=== PATIENT | female | born 1985 | race Caucasian/White ===

== ENCOUNTER 2018-01-14 15:41 | Outpatient (CLI) | payer MEDICAID ==
[2018-01-14] MEDS ORDERED: RINGERS SOLUTION,LACTATED 1,000 ML IV PRN (16:44)
[2018-01-14] MEDS ORDERED: RINGERS SOLUTION,LACTATED 1,000 ML IV ONE (16:44)
[2018-01-14 17:09] LABS: APPEARANCE,URINE CLEAR; BILIRUBIN,URINE NEGATIVE (NEGATIVE); COLOR,URINE YELLOW; GLUCOSE, URINE 50 mg/dL (NEGATIVE); KETONES,URINE NEGATIVE (NEGATIVE); LEUKOCYTE ESTERASE,URINE TRACE (NEGATIVE); NITRITE,URINE NEGATIVE (NEGATIVE); PROTEIN,URINE NEGATIVE (NEGATIVE); URINE SPECIFIC GRAVITY 1.012
[2018-01-14 17:30] LABS: URINE BARBITURATES SCREEN NEGATIVE; URINE BENZODIAZEPINES SCREEN NEGATIVE; URINE COCAINE SCREEN NEGATIVE; URINE MARIJUANA (THC) SCREEN NEGATIVE; URINE METHADONE SCREEN NEGATIVE; URINE PHENCYCLIDINE SCREEN NEGATIVE
[2018-01-14 17:42] LABS: URINE AMPHETAMINES SCREEN UNCONFIRMED POSITIVE
== END 2018-01-14 18:46 | disposition home or self-care (01) ==
LOC: LC 15:41
PROVIDERS: ATTEND Student in an Organized Health Care Education/Training Program
PROC: 4A1HXCZ Monitoring of Products of Conception, Cardiac Rate, External Approach (ICD-10-PCS; principal; 2018-01-14)
DX: O47.03 False labor before 37 completed weeks of gestation, third trimester (principal); Z3A.35 35 weeks gestation of pregnancy
CPT/HCPCS: 59025; 81001; 80307 ×2; G0480; 36415

== ENCOUNTER 2018-02-12 05:00 | Inpatient (IN) | payer MEDICAID ==
[2018-02-11 12:37] LABS: ABSOLUTE LYMPHOCYTES (AUTO) 1.1 10^3/uL (0.5-4.7); ABSOLUTE MONOCYTES (AUTO) 0.4 10^3/uL (0.1-1.4); ABSOLUTE NEUT (AUTO) 6.3 10^3/uL (1.7-8.2); BASOPHILS % (AUTO) 0.3 % (0-2); EOSINOPHILS % (AUTO) 0.6 % (0-6); HEMATOCRIT 25.7 % (36.0-47.0); HEMOGLOBIN 8.1 g/dL (12.0-15.5); LYMPHOCYTES % (AUTO) 13.9 % (13-45); MEAN CORPUSCULAR HEMOGLOBIN 18.4 pg (27.0-33.4); MEAN CORPUSCULAR HGB CONC 31.4 g/dL (32.0-36.0); MONOCYTES % (AUTO) 4.6 % (3-13); PLATELET COUNT 234 10^3/uL (150-450); RED CELL DISTRIBUTION WIDTH 17.4 % (11.5-14.0); SEGMENTED NEUTROPHILS % (AUTO) 80.6 % (42-78); TOTAL CELLS COUNTED % (AUTO) 100 %; WHITE BLOOD COUNT 7.9 10^3/uL (4.0-10.5)
[2018-02-11 12:38] LABS: MEAN CORPUSCULAR VOLUME 59 fl (80-97)
[2018-02-11 12:41] LABS: APPEARANCE,URINE SLIGHTLY-CLOUDY; BILIRUBIN,URINE NEGATIVE (NEGATIVE); COLOR,URINE DARK YELLOW; GLUCOSE, URINE NEGATIVE (NEGATIVE); KETONES,URINE NEGATIVE (NEGATIVE); LEUKOCYTE ESTERASE,URINE SMALL (NEGATIVE); NITRITE,URINE NEGATIVE (NEGATIVE); PROTEIN,URINE 30 mg/dL (NEGATIVE); URINE SPECIFIC GRAVITY 1.021
[2018-02-11 12:54] LABS: URINE AMPHETAMINES SCREEN NEGATIVE; URINE BARBITURATES SCREEN NEGATIVE; URINE BENZODIAZEPINES SCREEN NEGATIVE; URINE COCAINE SCREEN NEGATIVE; URINE MARIJUANA (THC) SCREEN NEGATIVE; URINE METHADONE SCREEN NEGATIVE; URINE PHENCYCLIDINE SCREEN NEGATIVE
[2018-02-11 13:10] LABS: ANISOCYTOSIS 1+; HYPOCHROMASIA 2+; OVALOCYTES 1+; PLATELET COMMENT ADEQUATE; POIKILOCYTOSIS 1+; POLYCHROMASIA 1+; SCHISTOCYTES SLIGHT; TEAR DROP CELLS 1+
[~2018-02-12 05:00] MED LIST: CEFAZOLIN 2 GM/D5W RTU 2 GM/50 ML RTUPB IV PRN; CEFAZOLIN SODIUM 2 GM in DEXTROSE 5%-WATER 100 ML IV PRN; LACTATED RINGERS 1000 ML IV PRN; LIDOCAINE 0.5% INJ-PF (5 MG/ML) 50 ML SDV SUBCUT PRN
[2018-02-12] MEDS ORDERED: MEPERIDINE HCL/PF INJ 25 MG/1 ML DISP.SYRIN IV PRN (07:44)
[2018-02-12] MEDS ORDERED: PROMETHAZINE HCL INJ 25 MG/1 ML VIAL IV PRN ×3 (07:44→08:29)
[2018-02-12] MEDS ORDERED: DIPHENHYDRAMINE HCL 50 MG/ML VIAL IV PRN (07:44)
[2018-02-12] MEDS ORDERED: MORPHINE SULFATE 10 MG/ML INJ IV PRN (07:44)
[2018-02-12] MEDS ORDERED: FENTANYL CITRATE INJ/PF 100 MCG/2 ML AMPUL IV PRN ×3 (07:44)
[2018-02-12] MEDS ORDERED: OXYCODONE-ACETAMINOPHEN 5-325 MG TABLET PO PRN ×3 (07:44→08:29)
[2018-02-12] MEDS ORDERED: DEXAMETHASONE SOD PHOSPHATE INJ 4 MG/1 ML VIAL ONE (07:45)
[2018-02-12] MEDS ORDERED: GLYCOPYRROLATE INJ 0.4 MG/2 ML VIAL ONE (07:45)
[2018-02-12] MEDS ORDERED: PHENYLEPHRINE HCL INJ/PF 10 MG/1 ML SDV ONE (07:45)
[2018-02-12] MEDS ORDERED: MORPHINE SULFATE 10 MG/ML INJ ONE ×2 (08:09→09:46)
[2018-02-12] MEDS ORDERED: MIDAZOLAM 2 MG/2 ML INJ ONE ×2 (08:09→09:10)
[2018-02-12] MEDS ORDERED: FENTANYL CITRATE INJ/PF 100 MCG/2 ML AMPUL ONE ×2 (08:09→10:23)
[2018-02-12] MEDS ORDERED: OXYTOCIN 10 UNIT/ML VIAL ONE (08:09)
[2018-02-12] MEDS ORDERED: OXYTOCIN/NORMAL SALINE 20 UNIT/1,000 ML RTUINJ ONE ×2 (08:09→09:53)
[2018-02-12] MEDS ORDERED: TETRACAINE HCL/PF 20MG/2ML AMPULE (SPINAL) ONE (08:10)
[2018-02-12] MEDS ORDERED: ONDANSETRON HCL INJ/PF 4 MG/2 ML SDV ONE (08:10)
[2018-02-12] MEDS ORDERED: RINGERS SOLUTION,LACTATED 1,000 ML IV PRN (08:29)
[2018-02-12] MEDS ORDERED: ACETAMINOPHEN 100 ML IV PRN (08:29)
[2018-02-12] MEDS ORDERED: DIPH/PERTUSS(ACELL)/TETANUS VAC/PF 0.5 ML SYR (>=10YO) IM PRN (08:29)
[2018-02-12] MEDS ORDERED: ACETAMINOPHEN 325 MG TABLET PO PRN (08:29)
[2018-02-12] MEDS ORDERED: MEASLES,MUMPS&RUBELLA VACC/PF 0.5 ML VIAL SUBCUT PRN (08:29)
[2018-02-12] MEDS ORDERED: OXYTOCIN/NORMAL SALINE 20 UNIT/1,000 ML RTUINJ IV PRN (08:29)
--- NOTE | 2018-02-12 09:42 | PDOC DELIVERY SUMMARY ---
Delivery Summary - Maternal Hx : VII Hx # Term Pregnancies: 2 Hx # Pregnancies: 1 FLORENTIN: 02/17/18 Gestational Age: 39+2 Ruptured Membranes: AROM Time of Rupture: 08:53 Fluids: Clear - Delivery Presentation: Breech Heart Rate Monitoring: Done Pre-Operatively Support Person Present: Yes Location: OR : Scheduled, Repeat Placenta: Within Normal Limits Placenta Description: 3 CORD VESSELS PER [address] [employer] Delivery of Placenta Date: 02/12/18 Delivery of Placenta Time: 08:55 - Medications Type of Anesthesia:: Spinal - Infant Assess and Care Baby 1 Female Delivery of Infant Date: 02/12/18 Delivery of Infant Time: 08:54 at 1 minute: 9 at 5 minutes: 9 Preprinted Number On Band: [id number] Skin to Skin: No - MOTHER NAUSEATED To Nursery At: 09:10 Mode of Transport: Bassinet Delivery Weight: 3,425 Delivery Length: 20 in - Delivery Personnel [facility] Worker: EVY BANKS RN: PHANI CHAVARRIA MD: EVA LOPEZ
--- NOTE | 2018-02-12 09:46 | Operative Report ---
Operative Report DATE OF SURGERY: 02/12/18 PREOPERATIVE DIAGNOSIS: Patient desires a repeat and tubal ligation POSTOPERATIVE DIAGNOSIS: Same OPERATION: Repeat via low transverse incision and tubal ligation with Filshie clips SURGEON: EVA LOPEZ ANESTHESIA: Spinal TISSUE REMOVED OR ALTERED: Placenta fallopian tubes COMPLICATIONS: None ESTIMATED BLOOD LOSS: 500 INTRAOPERATIVE FINDINGS: Viable infant normal uterus tubes and ovaries PROCEDURE: Patient was taken to the OR and placed in supine position after her spinal anesthesia. She is prepared and draped in sterile fashion. Castle was placed for drainage of the bladder. The patient's old scar was excised. Low transverse incision was made and carried down the level of the fascia. The fascial incision was made with knife and extended bilaterally with curved Dorsey scissors. The fascia was off the rectus muscles using sharp and blunt dissection. The rectus muscles are in the midline. The peritoneum was entered without incident. Bladder blade was placed in uterine segment was identified. A low transverse incision was made creating a bladder flap. Bladder blade was placed low transverse uterine incision was made with the csafe knife and extended with fingertips. The baby was delivered with some fundal pressure in a jermaine breech fashion.. Mouth and nose were suctioned free. The cord is doubly clamped and cut. Baby is passed off to the steel roller in attendance. The placenta was manually extracted with trailing membranes. The uterus was externalized wrapped in a moist lap sponge. Uterine contents wiped free. Uterus was closed with a running locking layer of 0 chromic suture using the second layer to imbricate the first completing a double layer closure of the uterus. The serosa was closed with a running 2-0 chromic stitch. The pelvis was irrigated and suctioned free of fluid the uterus was replaced in the abdomen. The tubal ligation was carried out by placing a Filshie clip across the mid isthmic portion of each tube after identifying the fimbria on each tube. The abdominal wall peritoneum was closed with running 2-0 chromic stitch. Fascia was closed with a running 0 Vicryl in 2 segments. Yong's layer was brought together with 0 plain gut stitch and the skin was closed with running subcuticular 4-0 undyed Vicryl stitch. The wound was dressed mother and baby did well.
[2018-02-12] MEDS ORDERED: BUPRENORPHINE HCL PO SCH (10:00)
[2018-02-12] MEDS ORDERED: KETOROLAC TROMETHAMINE INJ/PF 30 MG/1 ML SDV ONE (10:59)
[2018-02-12] MEDS ORDERED: ACETAMINOPHEN 100 ML IV ONE (11:02)
[2018-02-12 11:20] LABS: PATH REVIEW PATHOLOGIST REVIEWED
[2018-02-12] MEDS: HYDROMORPHONE HCL INJ/PF 2 MG/ML AMPULE IV PRN ×3 (13:25→23:44)
[2018-02-12] MEDS: PRENATAL VITAMIN W DHA CAPSULE PO SCH (13:36)
[2018-02-12] MEDS: DOCUSATE SODIUM 100 MG CAPSULE PO SCH ×2 (13:36→18:47)
[2018-02-12] MEDS ORDERED: KETOROLAC TROMETHAMINE INJ/PF 30 MG/1 ML SDV IV ONE (14:30)
[2018-02-12] MEDS ORDERED: KETOROLAC TROMETHAMINE INJ/PF 30 MG/1 ML SDV IV SCH (18:00)
[2018-02-12] MEDS: OXYCODONE-ACETAMINOPHEN 5-325 MG TABLET PO PRN (20:42)
[2018-02-12] MEDS: KETOROLAC TROMETHAMINE INJ/PF 30 MG/1 ML SDV IV SCH (21:30)
[2018-02-13] MEDS: HYDROMORPHONE HCL INJ/PF 2 MG/ML AMPULE IV PRN (04:11)
[2018-02-13] MEDS: KETOROLAC TROMETHAMINE INJ/PF 30 MG/1 ML SDV IV SCH (05:46)
[2018-02-13 06:33] LABS: MEAN CORPUSCULAR HEMOGLOBIN 18.4 pg (27.0-33.4); MEAN CORPUSCULAR HGB CONC 30.9 g/dL (32.0-36.0); MEAN CORPUSCULAR VOLUME 59 fl (80-97); PLATELET COUNT 176 10^3/uL (150-450); RED BLOOD COUNT 3.53 10^6/uL (3.72-5.28); RED CELL DISTRIBUTION WIDTH 16.8 % (11.5-14.0); WHITE BLOOD COUNT 11.5 10^3/uL (4.0-10.5)
[2018-02-13 06:50] LABS: HEMOGLOBIN 6.5 g/dL (12.0-15.5)
[2018-02-13] MEDS: IRON POLYSACCHARIDES COMPLEX 150 MG CAPSULE PO SCH (10:08)
[2018-02-13] MEDS: ASCORBIC ACID 500 MG TABLET PO SCH (10:08)
[2018-02-13] MEDS: DOCUSATE SODIUM 100 MG CAPSULE PO SCH ×2 (10:09→22:00)
[2018-02-13] MEDS: PRENATAL VITAMIN W DHA CAPSULE PO SCH (10:09)
[2018-02-13] MEDS: OXYCODONE-ACETAMINOPHEN 5-325 MG TABLET PO PRN ×3 (10:10→19:55)
[2018-02-13] MEDS: IBUPROFEN 800 MG TABLET PO SCH (11:00)
[2018-02-13] MEDS: SIMETHICONE 80 MG TAB.CHEW PO PRN (11:00)
--- NOTE | 2018-02-13 17:03 | PDOC PROGRESS REPORT ---
Subjective-OB Progress Note for:: 02/13/18 Subjective: reports bleeding slowing, pain controlled with current meds, has not passed gas. RN notified and asked to give simethicone. Physical Exam (OB) Vital Signs: Temp Pulse Resp BP Pulse Ox 98.2 F 74 18 134/82 H 100 02/13/18 15:36 02/13/18 15:36 02/13/18 15:36 02/13/18 15:36 02/13/18 15:36 Intake & Output 02/12/18 02/13/18 02/14/18 06:59 06:59 06:59 Intake Total 2850 700 Output Total 900 Balance 1950 700 Weight 77.11 kg - Dressing Removed: No - opsite dressing D&I, small old drainage circled, no redness or swelling Incision: Dressing - dry and intact, Well Approximated - Abdomen Description: Tender, Soft Hernia Present: No Fundal Description: Firm, Midline Fundal Height: u/u - u/2 - Extremities Lower extremities: Arleth's sign - neg Calf: Normal, Nontender Objective-Diagnostic Laboratory: 02/13/18 06:14 02/13/18 06:14 WBC 11.5 H RBC 3.53 L Hgb 6.5 L Hct 21.0 L MCV 59 L MCH 18.4 L MCHC 30.9 L RDW 16.8 H Plt Count 176 Assessment and Plan(PN) - Assessment and Plan (1) Previous section Is this a current diagnosis for this admission?: Yes Plan:: encouraged to walk today - Time Spent with Patient Time with patient: Less than 15 minutes - Disposition Anticipated Discharge: Home Within: within 24 hours
[2018-02-14] MEDS: OXYCODONE-ACETAMINOPHEN 5-325 MG TABLET PO PRN ×2 (00:36→05:51)
[2018-02-14] MEDS: IBUPROFEN 800 MG TABLET PO SCH ×3 (00:40→12:29)
[2018-02-14] MEDS: SIMETHICONE 80 MG TAB.CHEW PO PRN (00:44)
[2018-02-14] MEDS: ASCORBIC ACID 500 MG TABLET PO SCH ×2 (00:51→10:30)
[2018-02-14 06:29] LABS: ABSOLUTE BASOPHILS # (AUTO) 0.1 10^3/uL (0.0-0.2); ABSOLUTE EOSINOPHILS # (AUTO) 0.1 10^3/uL (0.0-0.6); ABSOLUTE LYMPHOCYTES (AUTO) 1.6 10^3/uL (0.5-4.7); ABSOLUTE MONOCYTES (AUTO) 0.5 10^3/uL (0.1-1.4); ABSOLUTE NEUT (AUTO) 7.5 10^3/uL (1.7-8.2); BASOPHILS % (AUTO) 0.6 % (0-2); EOSINOPHILS % (AUTO) 1.2 % (0-6); MEAN CORPUSCULAR HEMOGLOBIN 18.6 pg (27.0-33.4); MEAN CORPUSCULAR HGB CONC 31.6 g/dL (32.0-36.0); MEAN CORPUSCULAR VOLUME 59 fl (80-97); MONOCYTES % (AUTO) 5.4 % (3-13); PLATELET COUNT 188 10^3/uL (150-450); RED BLOOD COUNT 3.57 10^6/uL (3.72-5.28); RED CELL DISTRIBUTION WIDTH 17.1 % (11.5-14.0); SEGMENTED NEUTROPHILS % (AUTO) 76.8 % (42-78); TOTAL CELLS COUNTED % (AUTO) 100 %; WHITE BLOOD COUNT 9.7 10^3/uL (4.0-10.5)
[2018-02-14 06:50] LABS: ANISOCYTOSIS 1+; HYPOCHROMASIA 2+; OVALOCYTES SLIGHT; PLATELET COMMENT ADEQUATE; POIKILOCYTOSIS SLIGHT; TEAR DROP CELLS SLIGHT; TOXIC GRANULATION SLIGHT
[2018-02-14 06:55] LABS: HEMOGLOBIN 6.7 g/dL (12.0-15.5)
--- NOTE | 2018-02-14 07:11 | PDOC DISCHARGE SUMMARY ---
Final Diagnosis Discharge Date: 02/14/18 - Final Diagnosis (1) S/P repeat low transverse Is this a current diagnosis for this admission?: Yes (2) Acute blood loss anemia Is this a current diagnosis for this admission?: Yes (3) Previous section Is this a current diagnosis for this admission?: Yes Discharge Data - Discharge Medication Prescriptions: Docusate Sodium [Colace 100 mg Capsule] 100 mg PO BID #60 capsule Ibuprofen [Motrin 800 mg Tablet] 800 mg PO Q6 #30 tablet Iron Polysaccharides Complex [Nu-Iron 150 Capsule] 150 mg PO DAILY #60 capsule Home Medications: Buprenorphine HCl [Subutex 8 mg Sublingual Tablet] 20 tab PO DAILY 02/18/16 Docusate Sodium [Colace 100 mg Capsule] 100 mg PO BID #60 capsule 02/14/18 Ibuprofen [Motrin 800 mg Tablet] 800 mg PO Q6 #30 tablet 02/14/18 Iron Polysaccharides Complex [Nu-Iron 150 Capsule] 150 mg PO DAILY #60 capsule 02/14/18 Gestational Age: 39.2 Reason(s) for Admission: Ceasarean Section-Repeat Procedures: NST Intrapartum Procedure(s): : Low Cervical, Transverse, Tubal Ligation - Diagnosis Test Laboratory: Temp Pulse Resp BP Pulse Ox 98.8 F 59 L 18 129/75 H 98 02/14/18 04:03 02/14/18 04:03 02/14/18 04:03 02/14/18 04:03 02/14/18 04:03 02/11/18 02/11/18 02/13/18 11:25 11:30 06:14 RBC 4.40 3.53 L Hgb 8.1 L 6.5 L Hct 25.7 L 21.0 L Urine Opiates Screen NEGATIVE 02/14/18 06:06 RBC 3.57 L Hgb 6.7 L Hct 21.0 L Urine Opiates Screen - Discharge information/Instructions Discharge Activity: Activity As Tolerated, Pelvic Rest, No tub bath Discharge Diet: Regular Disposition: HOME, SELF-CARE Follow up with: [facility] in: 1, Weeks
[2018-02-14] MEDS: IRON POLYSACCHARIDES COMPLEX 150 MG CAPSULE PO SCH (10:30)
[2018-02-14] MEDS: PRENATAL VITAMIN W DHA CAPSULE PO SCH (10:31)
[2018-02-14] MEDS: DOCUSATE SODIUM 100 MG CAPSULE PO SCH (10:31)
[2018-02-14 11:30] VITALS: BP 120/66
== END 2018-02-14 12:58 | disposition home or self-care (01) | DRG 765 ==
LOC: 2S 05:00
PROVIDERS: ADMIT Obstetrics & Gynecology; ATTEND Obstetrics & Gynecology
PROC: 0UL70CZ Occlusion of Bilateral Fallopian Tubes with Extraluminal Device, Open Approach (ICD-10-PCS; 2018-02-12)
PROC: 4A1HXCZ Monitoring of Products of Conception, Cardiac Rate, External Approach (ICD-10-PCS; 2018-02-12)
PROC: 10D00Z1 Extraction of Products of Conception, Low, Open Approach (ICD-10-PCS; principal; 2018-02-12 08:00)
DX: O32.1XX0 Maternal care for breech presentation, not applicable or unspecified (principal); D62 Acute posthemorrhagic anemia; O34.211 Maternal care for low transverse scar from previous cesarean delivery; O99.02 Anemia complicating childbirth; Z80.1 Family history of malignant neoplasm of trachea, bronchus and lung; Z82.49 Family history of ischemic heart disease and other diseases of the circulatory system; Z30.2 Encounter for sterilization; Z3A.39 39 weeks gestation of pregnancy; Z37.0 Single live birth
CPT/HCPCS: 1961; 36415; 59025; 80307; 81001; 85025; 85027; 86850; 86900; 86901; 86920; 90715; 94799; J0131; J0690; J1100; J1170; J1885; J2250; J2270; J2370; J2405; J2550; J2590; J3010; J3490; J7120